=== PATIENT | male | born 1995 | race Caucasian/White ===

== ENCOUNTER → 2019-07-02 08:40 | Outpatient (BNVA) | payer BC, SELFPAY | PROVIDERS: PCP Pediatrics; Visit Provider Specialist | DX: G40.319 Generalized idiopathic epilepsy and epileptic syndromes, intractable, without status epilepticus (principal); F17.220 Nicotine dependence, chewing tobacco, uncomplicated | CPT/HCPCS: 99214 ==

== ENCOUNTER → 2019-07-17 14:51 | Outpatient (BNVA) | payer BC, SELFPAY | PROVIDERS: Visit Provider Specialist | DX: G40.309 Generalized idiopathic epilepsy and epileptic syndromes, not intractable, without status epilepticus (principal); R29.90 Unspecified symptoms and signs involving the nervous system; G40.B09 Juvenile myoclonic epilepsy, not intractable, without status epilepticus; F17.220 Nicotine dependence, chewing tobacco, uncomplicated | CPT/HCPCS: 99214 ==

== ENCOUNTER → 2020-11-24 13:42 | Outpatient (BNVA) | payer BC, SELFPAY | PROVIDERS: Visit Provider Specialist | DX: G40.B09 Juvenile myoclonic epilepsy, not intractable, without status epilepticus (principal) | CPT/HCPCS: 99214 ==

== ENCOUNTER → 2022-03-02 11:15 | Outpatient (BNVA) | payer BC, MEDICAID, SELFPAY | PROVIDERS: PCP Family Medicine; Visit Provider Family Medicine | DX: G40.B09 Juvenile myoclonic epilepsy, not intractable, without status epilepticus (principal); L25.9 Unspecified contact dermatitis, unspecified cause | CPT/HCPCS: 80053; 85025 ==

== ENCOUNTER → 2022-11-30 10:20 | Outpatient (BNVA) | payer BC, MEDICAID, SELFPAY | PROVIDERS: Referring Provider Registered Nurse; Visit Provider Physician Assistant | DX: M54.50 Low back pain, unspecified (principal) | CPT/HCPCS: 72110 ==